=== PATIENT | female | born 1975 | race Caucasian/White ===

== ENCOUNTER 2018-10-19 18:39 | Emergency (ER) | payer OTHER ==
[~2018-10-19] VITALS: Ht 162.6 cm; Wt 103.4 kg
[2018-10-19] MEDS ORDERED: SYNTHROID125 MCG PO (19:09)
[2018-10-19] MEDS ORDERED: ASA81 MG PO (19:09)
[2018-10-19] MEDS ORDERED: ATORVASTATIN CA10 MG PO (19:09)
[2018-10-19] MEDS ORDERED: SKELAXIN800 MG PO (22:13)
[2018-10-19] MEDS ORDERED: KETO10TA2 PO (22:13)
== END 2018-10-19 22:32 ==
LOC: ER 18:39
DX: S13.8XXA Sprain of joints and ligaments of other parts of neck, initial encounter (principal); V49.88XA Car occupant (driver) (passenger) injured in other specified transport accidents, initial encounter; M62.830 Muscle spasm of back; Y93.89 Activity, other specified; Y92.89 Other specified places as the place of occurrence of the external cause; Y99.8 Other external cause status